=== PATIENT | female | born 1960 | race Caucasian/White ===

== ENCOUNTER → 2020-09-20 10:01 | Outpatient (CLI) | payer OTHER, SELFPAY ==
[2020-09-20 10:34] LABS: COVID19 -Nasal RAPID Negative (Negative)
== END ==
PROVIDERS: Visit Provider Obstetrics & Gynecology
DX: Z01.812 Encounter for preprocedural laboratory examination (principal); Z20.822 Contact with and (suspected) exposure to COVID-19
CPT/HCPCS: 87635

== ENCOUNTER 2020-09-20 10:28 | Day surgery (SDC) | payer OTHER, SELFPAY ==
[2020-09-13 15:13] VITALS: BMI 29.7
--- NOTE | 2020-09-20 | PATH_ITS ---
[facility] Accession Number: [id number] . 01 Material submitted: . endometrium - ENDOMETRIAL CURETTTINGS AND POLYPS . 02 Diagnosis: Endometrial Curettings and Polyps: Patchy glandular crowding in a background of disordered proliferative endometrium; negative for cytologic atypia, or malignancy. Some endometrial fragments demonstrate prominent vessels, suggestive of polyp, if clinical and imaging studies are concordant. [facility] 09/24/2020 1832 Local . 02 Electronically signed: . Qian Schrader MD, Pathologist NPI- [id number] . 01 Gross description: . The specimen is received in formalin, labeled endometrial curettings and polyps, and consists of multiple potter-pink fragments of soft tissue measuring 2.5 x 2.0 x 0.5 cm in aggregate. The specimen is filtered and entirely submitted in cassette A1. ([id number]) /[facility] 09/21/2020 1349 Local . 02 Pathologist provided ICD-10: N95.0, R93.89 . 02 CPT . 874807 Performed at: 01 [facility] [address], [place], [place] [id number] MD Terrance Henderson MD Phone: [phone] Performed at: 02 [facility] [address] [place], [place] [id number] MD Rosa Elena Garcia MD Phone: [phone]
[2020-09-20 10:50] VITALS: BP 132/80; PULSE 66; RESP 18; TEMP 36.5; O2SAT 98; BMI 29.7
[2020-09-20] MEDS: LACTATED RINGERS 1,000 ML 42 ML IV (10:56)
--- NOTE | 2020-09-20 11:09 | PM.PREOP ---
Pre-operative Note COVID-19 COVID-19 status: Negative Result date/Date tested (Pos, Neg/Pending): 09/20/20 Interval Note History & Physical reviewed/Exam performed by Physician: Yes Changes to H&P: No
--- NOTE | 2020-09-20 11:16 | SUR.OPER ---
Lithotomy on padded OR bed, head on pillow, arms secured on padded arm boards at <90 degrees abduction. Legs secured in padded yellow fins stirrups.
--- NOTE | 2020-09-20 12:19 | PM.OP.1 ---
Operative Date/Time/Diagnoses Date of procedure: 09/20/20 Time of procedure: 12:19 Pre-op diagnosis: Postmenopausal bleeding and thickened endometrium on ultrasound Post-op diagnosis: same Procedure & Clinicians Procedure: Hysteroscopy with resection of polyps and endometrial curettage Same procedure as scheduled: Yes Indications: Postmenopausal bleeding with thickened endometrium on ultrasound Surgeon: Chioma Quinones Click Yes if Unassisted: Yes Anesthesia Type: General Operative Notes Findings: Multiple uterine and endocervical polyps Closure Type: not applicable Specimen(s): other (Endometrial and endocervical polyps and uterine curettage) Estimated Blood Loss (mL): 20 Blood products transfused: none Procedure in detail: The patient was brought to the operating room where she underwent general anesthesia. She was placed in low stirrups She was prepped and draped in usual sterile fashion with pulsatile stockings in place and functional, warming in place. Her bladder was drained with in and out catheter. A check system was reviewed with staff in the room prior to beginning the case. A single-tooth tenaculum was placed on the anterior lip of the cervix and the uterus dilated to #8 Hegar dilator. The hysteroscope was placed into the uterus with a sorbitol solution running and under constant suction. The resecting loop set at 80 W of cutting was used to resect the polyps down to the level of the endometrium. A endometrial curettage was performed. The polyps and the endometrial curettage was sent to pathology. The patient went to recovery room in good condition counts of instruments and sponges were correct. The sorbitol solution I=O approximately 3000 mL. Complications: none Post-operative Condition: stable Disposition: same day surgery Plan for aftercare: Treatment and follow-up based on biopsy results
[2020-09-20 12:22] VITALS: BP 106/84; PULSE 54; RESP 12; TEMP 36.5; O2SAT 96
[2020-09-20 12:25] VITALS: BP 117/64; PULSE 52; RESP 12; O2SAT 97
[2020-09-20 12:30] VITALS: BP 124/71; PULSE 62; RESP 14; O2SAT 97
[2020-09-20 12:32] VITALS: BP 122/70; PULSE 52; RESP 14; O2SAT 96
[2020-09-20 12:50] VITALS: BP 120/66; PULSE 72; RESP 16; TEMP 36.8; O2SAT 99
== END 2020-09-20 12:54 | disposition home or self-care (01) ==
PROVIDERS: Referring Provider Specialist; Visit Provider Specialist
PROC: 0UDB8ZZ Extraction of Endometrium, Via Natural or Artificial Opening Endoscopic (ICD-10-PCS; CPT 58558; principal; 2020-09-20 11:15)
DX: N95.0 Postmenopausal bleeding (principal); R93.89 Abnormal findings on diagnostic imaging of other specified body structures; Z20.822 Contact with and (suspected) exposure to COVID-19; N84.0 Polyp of corpus uteri; N84.1 Polyp of cervix uteri
CPT/HCPCS: 58558; 87635; J1100; J1885; J2405; J2704; J3010